=== PATIENT | female | born 1990 | race Caucasian/White ===

== ENCOUNTER 2017-07-31 10:09 | Inpatient (IN) | payer MEDICAID ==
[~2017-07-31] VITALS: Ht 162.6 cm; Wt 75.0 kg
[2017-07-31] VITALS (13 sets, daily range): BP systolic 105–120; BP diastolic 51–90; PULSE 65–90; RESP 18; TEMP 97.9–98.1; O2SAT 97–99
[~2017-07-31 10:09] MED LIST: FE T325T PO; IBUP600 PO; OXYC1SOL5 PO; PREN0.01 PO
[2017-07-31 10:50] LABS: BASOPHIL % 0.4 % (0.0-2.0); EOSINOPHIL % 0.1 % (0.0-4.0); HEMATOCRIT 35.8 % (35.0-46.0); HEMO FLAGS DIFF FINAL; LYMPH % 27.2 % (9.0-44.0); LYMPHOCYTE # 2.5 TH/MM3 (1.0-4.8); MEAN CELL VOLUME 87.6 FL (80.0-100.0); MEAN CORPUSCULAR HEMOGLOBIN 29.2 PG (27.0-34.0); MEAN CORPUSCULAR HGB CONC 33.3 % (32.0-36.0); MONO % 6.6 % (0.0-8.0); NEUT % 65.7 % (16.0-70.0); PLATELET COUNT 209 TH/MM3 (150-450); RED BLOOD COUNT 4.09 MIL/MM3 (4.00-5.30); RED CELL DISTRIBUTION WIDTH 15.4 % (11.6-17.2); WHITE BLOOD COUNT 9.1 TH/MM3 (4.0-11.0)
[2017-07-31] MEDS ORDERED: LACTATED RINGER'S 1000 ML INJ 1,000 ML IV ONE (11:00)
--- NOTE | 2017-07-31 11:00 | HHI.HP ---
HPI Chief Complaint Repeat Date Seen: Jul 31, 2017 Travel History International Travel<30 Days: No Contact w/Intl Traveler<30Days: No History of Present Illness HPI Patient is a 26-year-old at 39-0/7 weeks gestation who presents today for repeat . She denies any concerns today. No vaginal bleeding or discharge. No gush or leaking of fluid. Positive movement. History Past Medical History Medical History: Denies Significant Hx Obstetric History Obstetric History in 2011 for macrosomia Repeat in 2016 Past Surgical History Narrative Surgical x 2 Family History Narrative Family History Family history significant for breast cancer and prostate cancer Social History Alcohol Use: No Tobacco Use: No Substance Abuse: No Allergies-Medications (Allergen,Severity, Reaction): Coded Allergies: No Known Allergies (Unverified , 12/15/15) Home Meds Active Scripts Oxycodone W/ Acetaminophen (Oxycodone/Acetaminophen 5-325 mg/5Ml) 5 mg/325 mg Tab, 1 TAB PO Q4H Y for moderate pain, #30 TAB Prov:Bonnie Adame MD 12/15/15 Ibuprofen (Motrin 600 Mg Tab) 600 Mg Tab, 600 MG PO Q6H for Pain Management, # 30 TAB 2 Refills Prov:Bonnie Adame MD 12/15/15 Reported Medications Ferrous Sulfate (Fe Tabs) 325 Mg Tab, 325 MG PO, TAB 12/15/15 Multivit/Min/Fol Ac/Iron/Pren ( Vit ( Plus)) Tab, 1 TAB PO DAILY 12/01/11 Review of Systems Except as stated in HPI: all other systems reviewed are Neg General / Constitutional: No: Fever, Chills Eyes: No: Blurred Vision, Visual changes HENT: No: Headaches Cardiovascular: No: Chest Pain or Discomfort, Palpitations Respiratory: No: Cough, Short of Breath Gastrointestinal: No: Vomiting, Abdominal Pain Genitourinary: No: Dysuria, Pelvic Pain, Discharge, Vaginal Bleeding Musculoskeletal: No: Edema Neurologic: No: Headache Psychiatric: No: Substance Abuse Physical Exam Vital Signs Date Time Temp Pulse Resp B/P (MAP) Pulse Ox O2 Delivery O2 Flow Rate FiO2 07/31/17 10:26 90 114/70 (85) 07/31/17 10:25 86 117/90 (99) Narrative GENERAL: Well-nourished, well-developed patient. SKIN: Warm and dry. HEAD: Normocephalic and atraumatic. EYES: No scleral icterus. No injection or drainage. ENT: No nasal drainage noted. Mucous membranes pink. Airway patent. NECK: Supple, trachea midline. No JVD. CARDIOVASCULAR: Regular rate and rhythm without murmurs, gallops, or rubs. RESPIRATORY: Breath sounds equal bilaterally. No accessory muscle use. ABDOMEN/GI: Abdomen soft, non-tender, bowel sounds present, no rebound, no guarding Gravid to 38 weeks size GENITOURINARY: Membranes: intact Uterine Contractions: q3-5mn FHT's: Category: I Baseline: 140 Reactive: + Variability: moderate Decels: none EXTREMITIES: No cyanosis or edema. BACK: Nontender without obvious deformity. NEUROLOGICAL: Awake and alert. Motor and sensory grossly within normal limits. Normal speech. Caprini VTE Risk Assessment Caprini VTE Risk Assessment: No/Low Risk (score <= 1) Caprini Risk Assessment Model Point Value = 1 Point Value = 2 Point Value = 3 Point Value = 5 Age 41-60 Minor surgery BMI > 25 kg/m2 Swollen legs Varicose veins or History of unexplained or recurrent spontaneous Oral contraceptives or hormone replacement Sepsis (< 1 month) Serious lung disease, including pneumonia (< 1 month) Abnormal pulmonary function Acute myocardial infarction Congestive heart failure (< 1 month) History of inflammatory bowel disease Medical patient at bed rest Age 61-74 Arthroscopic surgery Major open surgery (> 45 min) Laparoscopic surgery (> 45 min) Malignancy Confined to bed (> 72 hours) Immobilizing plaster cast Central venous access Age >= 75 History of VTE Family history of VTE Factor V Leiden Prothrombin 30870H Lupus anticoagulant Anticardiolipin antibodies Elevated serum homocysteine Heparin-induced thrombocytopenia Other congenital or acquired thrombophilia Stroke (< 1 month) Elective arthroplasty Hip, pelvis, or leg fracture Acute spinal cord injury (< 1 month) Prophylaxis Regimen Total Risk Factor Score Risk Level Prophylaxis Regimen 0-1 Low Early ambulation 2 Moderate Order ONE of the following: *Sequential Compression Device (SCD) *Heparin 5000 units SQ BID 3-4 Higher Order ONE of the following medications: *Heparin 5000 units SQ TID *Enoxaparin/Lovenox 40 mg SQ daily (WT < 150 kg, CrCl > 30 mL/min) *Enoxaparin/Lovenox 30 mg SQ daily (WT < 150 kg, CrCl > 10-29 mL/min) *Enoxaparin/Lovenox 30 mg SQ BID (WT < 150 kg, CrCl > 30 mL/min) AND/OR *Sequential Compression Device (SCD) 5 or more Highest Order ONE of the following medications: *Heparin 5000 units SQ TID (Preferred with Epidurals) *Enoxaparin/Lovenox 40 mg SQ daily (WT < 150 kg, CrCl > 30 mL/min) *Enoxaparin/Lovenox 30 mg SQ daily (WT < 150 kg, CrCl > 10-29 mL/min) *Enoxaparin/Lovenox 30 mg SQ BID (WT < 150 kg, CrCl > 30 mL/min) AND *Sequential Compression Device (SCD) Data Data Vital Signs Reviewed: Yes Orders Orders Admit To Inpatient (07/31/17 ) Code Status (07/31/17 10:27) Vital Signs (Adult) .ON ADMISSION (07/31/17 10:27) Activity Oob Ad Sarah (07/31/17 10:27) Heart (07/31/17 10:27) Urinary Catheter Management EDWIN.Q8H (07/31/17 10:27) ^ Preps (07/31/17 10:27) Scd / Jim / Foot Pump EDWIN.QSHIFT (07/31/17 10:27) ^ Ultrasound For Locatio (07/31/17 10:27) Diet Npo (07/31/17 Lunch) Lactated Ringer's 1000 Ml Inj (Lr 1000 M (07/31/17 11:00) Lactated Ringer's 1000 Ml Inj (Lr 1000 M (07/31/17 11:30) Citric Acid-Sodium Citrate Liq (Bicitra (07/31/17 12:00) Type And Screen (07/31/17 10:27) Complete Blood Count With Diff (07/31/17 10:27) Urinalysis - C+S If Indicated (07/31/17 10:27) Drug Screen, Random Urine (07/31/17 10:27) Cefazolin Inj (Ancef Inj) (07/31/17 11:30) Inpatient Certification (07/31/17 ) Specimen To Be Collected PRN (07/31/17 10:27) Specimen To Be Collected PRN (07/31/17 10:27) Group B Strep: Negative Labs Laboratory Tests Test 07/31/17 10:30 White Blood Count 9.1 Red Blood Count 4.09 Hemoglobin 11.9 Hematocrit 35.8 Mean Corpuscular Volume 87.6 Mean Corpuscular Hemoglobin 29.2 Mean Corpuscular Hemoglobin Concent 33.3 Red Cell Distribution Width 15.4 Platelet Count 209 Mean Platelet Volume 9.6 Neutrophils (%) (Auto) 65.7 Lymphocytes (%) (Auto) 27.2 Monocytes (%) (Auto) 6.6 Eosinophils (%) (Auto) 0.1 Basophils (%) (Auto) 0.4 Neutrophils # (Auto) 6.0 Lymphocytes # (Auto) 2.5 Monocytes # (Auto) 0.6 Eosinophils # (Auto) 0.0 Basophils # (Auto) 0.0 CBC Comment DIFF FINAL Differential Comment Assessment/Plan Problem List: (1) 38 weeks gestation of ICD Codes: Z3A.38 - 38 weeks gestation of Permanent Comment: wrong entry Last Edited By: Philip Adame on Aug 01, 2017 08:20 Assessment and Plan 26 year old at 39-0/7 weeks gestation. 1. IUP- Category I tracing, reassuring. 2. Repeat . 3. GBS negative. dw Flaca Cowart MD, R3 Jul 31, 2017 11:00
[2017-07-31] MEDS ORDERED: LACTATED RINGER'S 1000 ML INJ 1,000 ML IV SCH ×2 (11:30→19:05)
[2017-07-31] MEDS ORDERED: CITRIC ACID-SODIUM CITRATE LIQ 30 ML UDC PO SCH (12:00)
[2017-07-31] MEDS ORDERED: MORPHINE SULFATE PF 5 MG/10 ML VIAL ONE (12:05)
[2017-07-31] MEDS ORDERED: ACETAMINOPHEN 1000 MG/100 ML 100 ML IV ONE (12:05)
[2017-07-31 13:33] LABS: BACTERIA, URINE OCC /hpf; BLOOD, URINE NEG (NEG); GLUCOSE,URINE NEG (NEG); HYALINE CAST, URINE 1 /lpf (RARE); KETONE, URINE 40 mg/dL (NEG); MUCUS URINE FEW /lpf (OCC); NITRITE,URINE NEG (NEG); PH, URINE 7.5 (5.0-8.5); SQUAMOUS EPITHELIAL CELL URINE 5 /hpf (0-5); URINE COLOR YELLOW (YELLW/STRAW)
[2017-07-31 13:35] LABS: COMMENT (UR) CULT NOT INDICATED; CULTURE IF INDICATED CULT NOT INDICATED
--- NOTE | 2017-07-31 14:06 | PD.OP ---
Operative Report Date of Surgery: Jul 31, 2017 Preoperative Diagnosis: (1) Previous section (2) 39 weeks gestation of Postoperative Diagnosis: (1) Previous section (2) 39 weeks gestation of Procedure: Repeat Low Transverse Section Anesthesia: Spinal Surgeon: Shila Adame Senior Commissions Analyst(s): Payal Hernandez Resident Surgeon: Flaca Macias Operation and Findings: PREOPERATIVE DIAGNOSIS 1. Intrauterine at 39-0/7 weeks gestation. 2. Repeat Section POSTOPERATIVE DIAGNOSIS 1. Intrauterine at 39-0/7 weeks gestation. 2. Repeat Section PROCEDURE Repeat low transverse section. FINDINGS: male weighing 3340g. Apgars 9/9. Normal fallopian tubes, ovaries, and uterus. ANESTHESIA Spinal. SURGEON Bonnie Adame MD CO-SURGEON She Macias MD, R3 COMPLICATIONS None. COUNTS Correct. ESTIMATED BLOOD LOSS 750 cc. FLUIDS Crystalloids. CONDITION The patient tolerated the procedure well and went to the recovery room in good condition. PROCEDURE IN DETAIL Under an adequate level of anesthesia, she was prepped and draped for abdominal surgery. The previous scar was removed with a Pfannenstiel incision and carried down to the fascia. The fascia was taken off the rectus muscle by blunt and sharp dissection. The rectus muscles were spread bluntly and the peritoneum was entered under direct vision without difficulty. The incision was extended with care to avoid the urinary bladder. A bladder blade was placed and a bladder flap created in the usual fashion. The uterine incision was made in a transverse manner along the lower uterine segment which was well-developed. It was taken down in the midline until the intrauterine cavity was entered. A mild amount of clear fluid was noted. The head was grasped and with fundal pressure, the head was delivered without difficulty. The rest of the body was delivered without complications. The cord was doubly clamped and cut after 45 seconds of delayed cord clamping and the infant handed to the resuscitation team present. The placenta was delivered manually. The uterus was curettaged twice with a wet lap. The uterine incision was then repaired with 2- 0 Vicryl in a running locking fashion, with the second layer imbricating the first. A uterine artery branch was found to be bleeding and was ligated with multiple figure of eight sutures. Hemostasis was excellent. The cul-de-sac and gutters were cleaned of blood and debris. The uterus was delivered back into the abdomen. The rectus muscles were reapproximated with 0 Vicryl in a running fashion. The fascia was repaired from lateral to midline with 0 Vicryl and the subcu was repaired with 3-0 Vicryl. The skin was repaired with a 4-0 Vicryl in a subcuticular manner. The wound was sterilely dressed with a Primapore dressing. She tolerated the procedure well and went to the recovery room in satisfactory condition. Flaca Macias MD, R3 Jul 31, 2017 14:05
[2017-07-31] MEDS ORDERED: ONDANSETRON HCL 4 MG/2 ML VIAL IV PUSH PRN (14:15)
[2017-07-31] MEDS ORDERED: ACETAMINOPHEN 325 MG TAB PO PRN (14:15)
[2017-07-31] MEDS ORDERED: SODIUM CHLORIDE 0.9% FLUSH 10 ML FLUSH IV FLUSH PRN (14:15)
[2017-07-31] MEDS ORDERED: SIMETHICONE 80 MG CHEWABLE TAB PO PRN (14:15)
[2017-07-31] MEDS ORDERED: OXYTOCIN 30 UNITS-500ML PREMIX 500 ML IV ONE (14:15)
[2017-07-31] MEDS ORDERED: ZOLPIDEM TARTRATE 5 MG TAB PO PRN (14:15)
[2017-07-31] MEDS ORDERED: oxyCODONE/ACETAMINOPHEN 5 MG/325 MG TAB PO PRN (14:15)
[2017-07-31] MEDS ORDERED: EPIDURAL-NO SYSTEMIC NARCOTICS PRN (17:45)
[2017-07-31] MEDS ORDERED: EPIDURAL-DO NOT ADMINISTER ANTICOAGULANTS PRN (17:45)
[2017-07-31] MEDS ORDERED: EPIDURAL-DIPHENHYDRAMINE HCL 50 MG CAP PO PRN (17:45)
[2017-07-31] MEDS ORDERED: EPIDURAL-NALOXONE HCL 0.4 MG/ML AMP IV PUSH PRN (17:45)
[2017-07-31] MEDS ORDERED: EPIDURAL-DIPHENHYDRAMINE HCL 50 MG/ML VIAL IV PUSH PRN (17:45)
[2017-08-01] VITALS (9 sets, daily range): BP systolic 104–121; BP diastolic 53–69; PULSE 57–94; RESP 16–18; TEMP 97.8–98.2; O2SAT 96–98
[2017-08-01] MEDS ORDERED: OXYTOCIN 30 UNITS-500ML PREMIX 500 ML IV PRN (00:15)
[2017-08-01] MEDS: IBUPROFEN 600 MG TAB PO PRN ×4 (02:11→22:21)
[2017-08-01 05:54] LABS: BASOPHIL % 0.1 % (0.0-2.0); HEMATOCRIT 31.2 % (35.0-46.0); HEMO FLAGS DIFF FINAL; LYMPH % 19.4 % (9.0-44.0); LYMPHOCYTE # 2.4 TH/MM3 (1.0-4.8); MEAN CELL VOLUME 88.6 FL (80.0-100.0); MEAN CORPUSCULAR HEMOGLOBIN 28.8 PG (27.0-34.0); MEAN CORPUSCULAR HGB CONC 32.5 % (32.0-36.0); MONO % 7.3 % (0.0-8.0); NEUT % 73.2 % (16.0-70.0); PLATELET COUNT 201 TH/MM3 (150-450); RED BLOOD COUNT 3.52 MIL/MM3 (4.00-5.30); RED CELL DISTRIBUTION WIDTH 15.5 % (11.6-17.2); WHITE BLOOD COUNT 12.3 TH/MM3 (4.0-11.0)
--- NOTE | 2017-08-01 08:25 | HHI.OB ---
Subjective Post Operative Day: 1 Remarks Doing well Pain is well controlled Baby is doing well. Bleeding is normal-+ Objective Vitals/I&O Vital Signs Date Time Temp Pulse Resp B/P (MAP) Pulse Ox O2 Delivery O2 Flow Rate FiO2 08/01/17 04:30 98.1 57 18 104/53 (70) 98 08/01/17 00:00 98.2 66 16 112/59 (76) 98 07/31/17 20:00 98.1 65 18 109/75 (86) 97 07/31/17 14:43 120/57 (78) 07/31/17 14:42 75 18 99 07/31/17 14:38 97.9 07/31/17 14:35 73 98 07/31/17 14:34 114/65 (81) 07/31/17 14:34 18 07/31/17 14:16 75 18 112/68 (83) 97 07/31/17 14:05 97 07/31/17 14:00 105/51 (69) 07/31/17 13:50 119/53 (75) 07/31/17 13:50 81 07/31/17 10:30 18 07/31/17 10:26 90 114/70 (85) 07/31/17 10:25 86 117/90 (99) Result Diagram: 08/01/17 0525 Objective Remarks GENERAL: Well-nourished, well-developed patient. CARDIOVASCULAR: Regular rate and rhythm without murmurs, gallops, or rubs. RESPIRATORY: Breath sounds equal bilaterally. No accessory muscle use. ABDOMEN/GI: Abdomen soft, non-tender, bowel sounds present. Incision: Clean, dry and intact. Fundus: Firm, non-tender at umbilicus. GENITOURINARY: Light to moderate bleeding. EXTREMITIES: No cyanosis or edema, non-tender, without signs of DVT. Medications and IVs Current Medications Medications (Trade) Dose Ordered Sig/Stephan Route Start Time Stop Time Status Last Admin Lactated Ringer's 1,000 ml @ 100 mls/hr Q10H IV 07/31/17 19:05 08/01/17 15:04 07/31/17 23:29 Oxytocin 500 ml @ 100 mls/hr UNSCH X1 PRN IV 08/01/17 00:15 08/02/17 00:14 (NS Flush) 2 ml BID IV FLUSH 07/31/17 21:00 (NS Flush) 2 ml UNSCH PRN IV FLUSH 07/31/17 14:15 (Mylicon Chew) 80 mg QID PRN PO 07/31/17 14:15 (Tylenol) 650 mg Q6H PRN PO 07/31/17 14:15 (Motrin) 600 mg Q6H PRN PO 07/31/17 14:15 08/01/17 02:11 (Percocet 5-325 Mg) 1 tab Q4H PRN PO 07/31/17 14:15 (Percocet 5-325 Mg) 2 tab Q4H PRN PO 07/31/17 14:15 (Maggy-Colace) 2 tab Q12H PRN PO 07/31/17 14:15 (Ambien) 5 mg HS PRN PO 07/31/17 14:15 (M-M-R Ii Inj) 0.5 ml ONCE ONCE SQ 08/01/17 16:00 08/01/17 16:01 (Boostrix Inj) 0.5 ml ONCE ONCE IM 08/01/17 16:00 08/01/17 16:01 (Zofran Inj) 4 mg Q6H PRN IV PUSH 07/31/17 14:15 Miscellaneous Information NO SYSTEMIC NARCOTICS TO BE GIVEN FO... UNSCH PRN .XX 07/31/17 17:45 08/01/17 17:44 (Narcan Inj) 0.4 mg UNSCH PRN IV PUSH 07/31/17 17:45 08/01/17 17:44 (Benadryl Inj) 25 mg Q6H PRN IV PUSH 07/31/17 17:45 08/01/17 17:44 (Benadryl) 50 mg Q6H PRN PO 07/31/17 17:45 08/01/17 17:44 Miscellaneous Information ALL NURSING DEPARTMENTS UNSCH PRN .XX 07/31/17 17:45 08/01/17 17:44 Assessment/Plan Assessment and Plan POD #1 Doing well Routine care Bonnie Adame MD Aug 01, 2017 08:25
[2017-08-01] MEDS: oxyCODONE/ACETAMINOPHEN 5 MG/325 MG TAB PO PRN ×4 (09:04→22:21)
[2017-08-01] MEDS: SODIUM CHLORIDE 0.9% FLUSH 10 ML FLUSH IV FLUSH SCH (11:12)
[2017-08-01] MEDS ORDERED: MEASLES, MUMPS, RUBELLA VACCINE 0.5 ML VIAL SQ ONE (16:00)
[2017-08-01] MEDS ORDERED: DIPHTH/TETANUS/ACEL PERTUSSIS (BOOSTER) 0.5 ML VIAL/PFS IM ONE (16:00)
[2017-08-01] MEDS: DOCUSATE SODIUM 50 MG/SENNA 8.6 MG TAB PO PRN (19:13)
[2017-08-02] MEDS: oxyCODONE/ACETAMINOPHEN 5 MG/325 MG TAB PO PRN ×2 (04:43→09:48)
[2017-08-02] MEDS: IBUPROFEN 600 MG TAB PO PRN ×2 (04:44→13:15)
[2017-08-02] MEDS: SODIUM CHLORIDE 0.9% FLUSH 10 ML FLUSH IV FLUSH SCH (07:26)
[2017-08-02 08:00] VITALS: BP 115/62; PULSE 79; RESP 17; RESP 18; TEMP 98.1; O2SAT 97
[2017-08-02] MEDS ORDERED: OXYC1TAB63 PO (13:16)
[2017-08-02] MEDS ORDERED: IBUP-232 PO (13:16)
[2017-08-02] MEDS: DOCUSATE SODIUM 50 MG/SENNA 8.6 MG TAB PO PRN (14:53)
== END 2017-08-02 16:13 | disposition home or self-care (01) | DRG 766 ==
LOC: H2EB 10:09 → H1EA 14:59
PROVIDERS: ADMIT Obstetrics & Gynecology; ATTEND Obstetrics & Gynecology
PROC: 10D00Z1 Extraction of Products of Conception, Low, Open Approach (ICD-10-PCS; principal; 2017-07-31)
DX: O34.211 Maternal care for low transverse scar from previous cesarean delivery (principal); Z37.0 Single live birth; Z3A.39 39 weeks gestation of pregnancy
CPT/HCPCS: 59025; 80307; 81001; 85025; 86850; 86900; 86901; 90715; J0131; J2274; J7120